=== PATIENT | female | born 1990 | race Caucasian/White ===

== ENCOUNTER → 2016-08-04 | Outpatient (CLI) | payer OTHER ==
[2016-08-04 12:01] LABS: Follicle Stimulating Hormone 5.2 mIU/mL; Prolactin 15.2 ng/mL (3.0-18.6)
[2016-08-04 15:19] LABS: DHEA Sulfate 274.1 ug/dL (26.0-430.0)
== END | disposition home or self-care (01) ==
LOC: LABWHC1 08:24
PROVIDERS: ATTEND Obstetrics & Gynecology
DX: E28.2 Polycystic ovarian syndrome (principal)
CPT/HCPCS: 36415; 80061; 82627; 82947; 83001; 83002; 83525; 84146; 84402; 84443

== ENCOUNTER 2016-09-29 22:54 | Emergency (ER) | payer OTHER ==
--- NOTE | 2016-09-30 00:25 | ED ---
General Adult HPI - General Chief complaint: Headache Stated complaint: Migrane Time Seen by Provider: 09/29/16 23:30 Source: patient, RN notes reviewed Mode of arrival: ambulatory Limitations: no limitations - History of Present Illness Initial comments: This is a 26-year-old female presents to the emergency department complaining of a two-week history of a headache. Patient states headache is on the right side and she just figured it was a migraine headache. Patient states she's never been worked up for migraine headache. Patient comes in today because she started getting some pain in the base of her skull on the right and sometimes she states radiates up into her head. Patient states it hurts to palpate the area. Patient states was no injury or trauma to that area that she knows of. Patient denies any numbness or weakness. Patient denies visual disturbance currently but she states yesterday she thought her left eye was a little more blurry than normal. - Related Data Previous Rx's Medication Instructions Recorded Cyclobenzaprine [Flexeril] 10 mg PO TID #20 tab 09/30/16 Allergies Allergy/AdvReac Type Severity Reaction Status Date / Time Penicillins Allergy Unknown Verified 09/29/16 23:15 Review of Systems ROS Statement: Those systems with pertinent positive or pertinent negative responses have been documented in the HPI. ROS Other: All systems not noted in ROS Statement are negative. Past Medical History Past Medical History: Asthma History of Any Multi-Drug Resistant Organisms: None Reported Past Surgical History: No Surgical Hx Reported Past Psychological History: Bipolar, Depression Smoking Status: Never smoker Past Alcohol Use History: None Reported Past Drug Use History: None Reported General Exam - General Exam Comments Initial Comments: GENERAL: Patient is well-developed and well-nourished. Patient is nontoxic and well- hydrated and is in mild distress. ENT: Neck is soft and supple. No significant lymphadenopathy is noted. Oropharynx is clear. Moist mucous membranes. Patient has pain at the base of skull on the right when she looks and flexes to the left. It is also tender at the top of the trapezius muscle on palpation. EYES: The sclera were anicteric and conjunctiva were pink and moist. Extraocular movements were intact and pupils were equal round and reactive to light. Eyelids were unremarkable. PULMONARY: Unlabored respirations. Good breath sounds bilaterally. No audible rales rhonchi or wheezing was noted. CARDIOVASCULAR: There is a regular rate and rhythm without any murmurs gallops or rubs. ABDOMEN: Soft and nontender with normal bowel sounds. No palpable organomegaly was noted. There is no palpable pulsatile mass. SKIN: Skin is clear with no lesions or rashes and otherwise unremarkable. NEUROLOGIC: Patient is alert and oriented x3. Cranial nerves II through XII are grossly intact. Motor and sensory are also intact. Normal speech, volume and content. Symmetrical smile. MUSCULOSKELETAL: Normal extremities with adequate strength and full range of motion. LYMPHATICS: No significant lymphadenopathy is noted PSYCHIATRIC: Normal psychiatric evaluation. Limitations: no limitations Course Vital Signs 09/29/16 23:12 Temperature 99.1 F Pulse Rate 108 H Respiratory 20 Rate Blood Pressure 118/58 O2 Sat by Pulse 97 Oximetry Medical Decision Making - Medical Decision Making Patient's CT of the brain was negative. I gave the patient Toradol and Norflex for the neck discomfort. Patient states it took away her headache and did loosen up her neck a little. Patient has no other complaints at this time. I told the patient she had any focal neurologic deficits she is to return immediately. Disposition Clinical Impression: Headache, Trapezius muscle strain Disposition: HOME SELF-CARE Condition: Good Instructions: Acute Headache (ED), Muscle Strain (ED) Additional Instructions: Patient should take Motrin 600 mg every 6 hours. Patient is to return for any numbness weakness or change in the neurologic function. Prescriptions: Cyclobenzaprine [Flexeril] 10 mg PO TID #20 tab Referrals: Kashif Verde MD [Primary Care Provider] - 1-2 days Time of Disposition: 01:54
--- NOTE | 2016-09-30 01:18 | CT ---
EXAM: CT Head Without Intravenous Contrast CLINICAL HISTORY: Reason: Pain TECHNIQUE: Axial computed tomography images of the head/brain without intravenous contrast. CTDI is 57.40 mGy and DLP is 1098.80 mGy-cm This CT exam was performed using one or more of the following dose reduction techniques: automated exposure control, adjustment of the mA and/or kV according to patient size, and/or use of iterative reconstruction technique. COMPARISON: Head CT 08/11/15 FINDINGS: Brain: Unremarkable. No hemorrhage. No significant white matter disease. No edema. Ventricles: Unremarkable. No ventriculomegaly. Bones/joints: Unremarkable. No acute fracture. Soft tissues: Unremarkable. Sinuses: Unremarkable as visualized. No acute sinusitis. Mastoid air cells: Unremarkable as visualized. No mastoid effusion. IMPRESSION: Normal head/brain CT.
[2016-09-30] MEDS ORDERED: KETOROLAC 60 MG/2 ML VIAL IM STA (01:20)
[2016-09-30] MEDS ORDERED: ORPHENADRINE 30 MG/ML 2 ML VIAL IM STA (01:21)
[2016-09-30 02:03] VITALS: BP 138/75; PULSE 80; RESP 18; TEMP 98
== END 2016-09-30 02:03 | disposition home or self-care (01) ==
LOC: EC 22:54
DX: S46.812A Strain of other muscles, fascia and tendons at shoulder and upper arm level, left arm, initial encounter (principal); R51 Headache; X58.XXXA Exposure to other specified factors, initial encounter; Z88.0 Allergy status to penicillin
CPT/HCPCS: 70450; 99284; 96372 ×2; J2360; J1885

== ENCOUNTER 2018-01-10 03:18 | Emergency (ER) | payer SELFPAY ==
[2018-01-10] MEDS ORDERED: ORPHENADRINE 30 MG/ML 2 ML VIAL IM STA (03:44)
[2018-01-10] MEDS ORDERED: KETOROLAC 60 MG/2 ML VIAL IM STA (03:44)
[2018-01-10] MEDS ORDERED: predniSONE 20 MG TAB PO STA (03:44)
--- NOTE | 2018-01-10 03:49 | ED ---
Back Pain HPI - General Chief Complaint: Back Pain/Injury Stated Complaint: Back Pain Time Seen by Provider: 01/10/18 03:38 Source: patient Limitations: no limitations - History of Present Illness Initial Comments: This patient is 27-year-old woman who presents to be evaluated for right lumbar back pain that radiates toward her leg. The patient states she may have pulled a muscle earlier in the day, and then tonight she was reaching for her brush and had the onset of pain. She states that now the pain radiates from the right buttock toward the right thigh. She states pain is constant, severe, burning aching type of pain. She has not had any pain in the abdomen. She is not having any change in bladder or bowel function. No weakness or numbness of the extremities. MD Complaint: back pain -: hour(s) Similar Symptoms Previously: No Place: home Radiation: right leg Severity: severe Quality: burning, aching Consistency: constant Improves With: immobilization Worsens With: sitting upright Context: other Associated Symptoms: denies other symptoms - Related Data Previous Rx's Medication Instructions Recorded Cyclobenzaprine [Flexeril] 10 mg PO TID #20 tab 09/30/16 Ibuprofen [Motrin] 600 mg PO Q8HR PRN #20 tab 01/10/18 Methocarbamol [Robaxin-750] 750 mg PO TID PRN #30 tablet 01/10/18 predniSONE 60 mg PO DAILY #30 tab 01/10/18 Allergies Allergy/AdvReac Type Severity Reaction Status Date / Time Penicillins Allergy Unknown Verified 01/10/18 03:24 Review of Systems ROS Statement: Those systems with pertinent positive or pertinent negative responses have been documented in the HPI. ROS Other: All systems not noted in ROS Statement are negative. Constitutional: Denies: fever, weakness Cardiovascular: Denies: chest pain Gastrointestinal: Denies: abdominal pain Genitourinary: Denies: urgency, dysuria, frequency, hematuria Musculoskeletal: Reports: as per HPI, back pain Skin: Denies: rash Neurological: Denies: headache, weakness, numbness, paresthesias Past Medical History Past Medical History: Asthma History of Any Multi-Drug Resistant Organisms: None Reported Past Surgical History: No Surgical Hx Reported Past Psychological History: Bipolar, Depression Smoking Status: Never smoker Past Alcohol Use History: None Reported Past Drug Use History: None Reported General Exam Limitations: no limitations General appearance: alert, in no apparent distress, obese Cardiovascular Exam: Present: other (Pedal pulses are symmetric and normal in strength) GI/Abdominal exam: Absent: distended, tenderness, guarding, rebound, pulsatile mass, hernia Extremities exam: Present: normal inspection, normal capillary refill. Absent: pedal edema, calf tenderness Back exam: Present: normal inspection, tenderness. Absent: CVA tenderness (R), CVA tenderness (L), vertebral tenderness Neurological exam: Present: alert, reflexes normal. Absent: motor sensory deficit Skin exam: Present: warm, dry, intact, normal color. Absent: rash Course Vital Signs 01/10/18 03:22 Temperature 98.1 F Pulse Rate 109 H Respiratory 28 H Rate Blood Pressure 157/117 O2 Sat by Pulse 97 Oximetry Disposition Clinical Impression: Lumbar strain Disposition: HOME SELF-CARE Condition: Good Instructions: Acute Low Back Pain (ED) Prescriptions: Ibuprofen [Motrin] 600 mg PO Q8HR PRN #20 tab PRN Reason: Pain Methocarbamol [Robaxin-750] 750 mg PO TID PRN #30 tablet PRN Reason: pain predniSONE 60 mg PO DAILY #30 tab Is patient prescribed a controlled substance at d/c from ED?: No Referrals: Kashif Verde MD [Primary Care Provider] - 1-2 days
[2018-01-10 06:15] VITALS: BP 120/57; PULSE 78; RESP 18; TEMP 98
[2018-01-10] MEDS ORDERED: HYDROmorphone 1 MG/ML 1 ML SYRINGE IM STA (06:22)
== END 2018-01-10 06:45 | disposition home or self-care (01) ==
LOC: EC 03:18
DX: S39.012A Strain of muscle, fascia and tendon of lower back, initial encounter (principal); Z88.0 Allergy status to penicillin; X58.XXXA Exposure to other specified factors, initial encounter; Y93.89 Activity, other specified
CPT/HCPCS: 99283; 96372 ×3; J2360; J1885; J1170; J7512

== ENCOUNTER 2019-03-12 07:38 | Emergency (ER) | payer OTHER ==
[2019-03-12 07:46] VITALS: TEMP 98.2
[2019-03-12] MEDS ORDERED: KETOROLAC 60 MG/2 ML VIAL IVP STA (08:00)
[2019-03-12] MEDS ORDERED: DIAZEPAM 5 MG/ML 2 ML INJ IVP STA (08:00)
--- NOTE | 2019-03-12 08:06 | ED ---
General Adult HPI - General Chief complaint: Abdominal Pain Stated complaint: back pain Time Seen by Provider: 03/12/19 07:40 Source: patient, RN notes reviewed Mode of arrival: ambulatory Limitations: no limitations - History of Present Illness Initial comments: This is a 28-year-old female presents emergency Department complaining of left mid back pain. Patient states been hurting a little bit over 2 weeks but this morning and hurt so bad she was unable to dress herself or comb her hair. Patient states movement or deep breathing makes it considerably worse per patient denies any recent fever chills or cough. Patient denies picking up anything heavy or injuring it knowingly. Patient denies any radiation of pain. Patient denies any dysuria hematuria urinary frequency. Patient denies any history of kidney stones. Patient states she has had sciatica in the past but this is much higher much worse pain. - Related Data Home Medications Medication Instructions Recorded Confirmed Etonogestrel/Ethinyl Estradiol 1 ring VG Q21D 03/12/19 03/12/19 [Nuvaring Vaginal Ring] Loratadine [Claritin] 10 mg PO DAILY PRN 03/12/19 03/12/19 metFORMIN HCL [Glucophage] 500 mg PO BID 03/12/19 03/12/19 Previous Rx's Medication Instructions Recorded Methocarbamol [Robaxin-750] 750 mg PO TID PRN #30 tablet 01/10/18 Cyclobenzaprine [Flexeril] 10 mg PO TID #20 tab 03/12/19 Ketorolac [Toradol] 10 mg PO Q6HR #15 tab 03/12/19 Allergies Allergy/AdvReac Type Severity Reaction Status Date / Time Penicillins Allergy Rash/Hives Verified 03/12/19 08:02 Review of Systems ROS Statement: Those systems with pertinent positive or pertinent negative responses have been documented in the HPI. ROS Other: All systems not noted in ROS Statement are negative. Past Medical History Past Medical History: Asthma History of Any Multi-Drug Resistant Organisms: None Reported Past Surgical History: No Surgical Hx Reported Past Psychological History: Bipolar, Depression Smoking Status: Never smoker Past Alcohol Use History: None Reported Past Drug Use History: None Reported General Exam - General Exam Comments Initial Comments: GENERAL: Patient is well-developed and well-nourished. Patient is nontoxic and well- hydrated and is in moderate distress. ENT: Neck is soft and supple. No significant lymphadenopathy is noted. Oropharynx is clear. Moist mucous membranes. Neck has full range of motion without eliciting any pain. EYES: The sclera were anicteric and conjunctiva were pink and moist. Extraocular movements were intact and pupils were equal round and reactive to light. Eyelids were unremarkable. PULMONARY: Unlabored respirations. Good breath sounds bilaterally. No audible rales rhonchi or wheezing was noted. CARDIOVASCULAR: There is a regular rate and rhythm without any murmurs gallops or rubs. ABDOMEN: Soft and nontender with normal bowel sounds. SKIN: Skin is clear with no lesions or rashes and otherwise unremarkable. NEUROLOGIC: Patient is alert and oriented x3. Cranial nerves II through XII are grossly intact. Motor and sensory are also intact. Normal speech, volume and content. Symmetrical smile. MUSCULOSKELETAL: Normal extremities with adequate strength and full range of motion. Patient's pain is reproducible with palpation on the left mid thoracic back LYMPHATICS: No significant lymphadenopathy is noted PSYCHIATRIC: Normal psychiatric evaluation. Limitations: no limitations Course Vital Signs 03/12/19 03/12/19 03/12/19 07:42 09:05 09:32 Temperature 98.2 F Pulse Rate 68 81 98 Respiratory 81 H 16 16 Rate Blood Pressure 104/60 122/63 126/61 O2 Sat by Pulse 99 98 98 Oximetry Medical Decision Making - Medical Decision Making Chest x-ray showed no acute abnormality. I gave the patient Valium and Toradol and it didn't relieve her pain considerably so I gave her half of Dilaudid and it did help with the pain but also made her very nauseated. Patient does not want any other medicines at this time she states that she'll be fine going home with an anti-inflammatory and muscle relaxant. - Lab Data Lab Results 03/12/19 03/12/19 Range/Units 08:19 08:19 Urine Color Yellow Urine Appearance Clear (Clear) Urine pH 5.5 (5.0-8.0) Ur Specific [place] 1.022 (1.001-1.035) Urine Protein Negative (Negative) Urine Glucose (UA) Negative (Negative) Urine Ketones Negative (Negative) Urine Blood Negative (Negative) Urine Nitrite Negative (Negative) Urine Bilirubin Negative (Negative) Urine Urobilinogen <2.0 (<2.0) mg/dL Ur Leukocyte Esterase Negative (Negative) Urine HCG, Qual Not Detected (Not Detectd) Disposition Clinical Impression: Acute thoracic myofascial strain Disposition: HOME SELF-CARE Condition: Good Prescriptions: Cyclobenzaprine [Flexeril] 10 mg PO TID #20 tab Ketorolac [Toradol] 10 mg PO Q6HR #15 tab Is patient prescribed a controlled substance at d/c from ED?: No Referrals: Kashif Verde MD [Primary Care Provider] - 1-2 days Time of Disposition: 10:08
--- NOTE | 2019-03-12 08:45 | XR ---
EXAMINATION TYPE: XR chest 2V DATE OF EXAM ORDERED: 03/12/2019 HISTORY: Difficulty breathing . REFERENCE: Previous study dated 03/08/2012. FINDINGS: The lungs are clear. Pleural spaces are clear. Heart size is normal. IMPRESSION: NORMAL CHEST.
[2019-03-12] MEDS ORDERED: HYDROmorphone 1 MG/ML 1 ML SYRINGE IVP STA (08:58)
[2019-03-12] MEDS ORDERED: HYDROmorphone 0.5 MG/0.5 ML SYRINGE IVP STA (09:00)
[2019-03-12 09:06] VITALS: RESP 16
[2019-03-12] MEDS ORDERED: ONDANSETRON 4 MG/2 ML VIAL IVP STA (09:25)
[2019-03-12 09:43] LABS: Appearance,Urine Clear (Clear); Bilirubin,Urine Negative (Negative); Blood,Urine Negative (Negative); Color,Urine Yellow; Glucose,Urine (UA) Negative (Negative); Ketones,Urine Negative (Negative); Leukocyte Esterase,Urine Negative (Negative); Nitrite,Urine Negative (Negative); PH, Urine 5.5 (5.0-8.0); Protein,Urine Negative (Negative); Specific Gravity,Urine 1.022 (1.001-1.035); Urobilinogen,Urine <2.0 mg/dL (<2.0)
[2019-03-12 10:24] VITALS: BP 116/67; PULSE 75
== END 2019-03-12 10:12 | disposition home or self-care (01) ==
LOC: EC 07:38
DX: S29.012A Strain of muscle and tendon of back wall of thorax, initial encounter (principal); R11.0 Nausea; Z32.02 Encounter for pregnancy test, result negative; Z79.84 Long term (current) use of oral hypoglycemic drugs; Z79.3 Long term (current) use of hormonal contraceptives; Z88.0 Allergy status to penicillin; X58.XXXA Exposure to other specified factors, initial encounter
CPT/HCPCS: 81003; 81025; 71046; 99284; 96374; 96375 ×3; J3360; J2405; J1885; J1170

== ENCOUNTER 2021-07-13 20:43 | Emergency (ER) | payer OTHER ==
[2021-07-13 21:02] VITALS: BP 120/76; TEMP 98.4
--- NOTE | 2021-07-13 21:18 | ED ---
Back Pain HPI - General Chief Complaint: Back Pain/Injury Stated Complaint: Back/R hip pain Time Seen by Provider: 07/13/21 21:18 Source: patient Limitations: no limitations - History of Present Illness Initial Comments: Keke is a 30yo F with PMH of sciatica in the past who presents to the ER today via private vehicle with complaint of exacerbation of sciatica. Patient reports that over to pull clothes out of a drawer and felt her lower back, she doesn't have shooting pain from her right lower back down her right leg. This is identical to previous episodes of sciatica. She has no numbness or weakness in her leg. She is still ambulatory. Patient states in the past she has seen a chiropractor for her low back pain and sciatica, she is also been educated on sciatica stretches. Patient states she has not been compliant with her stretches due to working from home and sitting all day, she also states that due to COVID-19 she hasn't been able see a chiropractor on a regular basis. - Related Data Home Medications Medication Instructions Recorded Confirmed Etonogestrel/Ethinyl Estradiol 1 ring VG Q21D 03/12/19 03/12/19 [Nuvaring Vaginal Ring] Loratadine [Claritin] 10 mg PO DAILY PRN 03/12/19 03/12/19 metFORMIN HCL [Glucophage] 500 mg PO BID 03/12/19 03/12/19 Previous Rx's Medication Instructions Recorded Methocarbamol [Robaxin-750] 750 mg PO TID PRN #30 tablet 01/10/18 Cyclobenzaprine [Flexeril] 10 mg PO TID #20 tab 03/12/19 Ketorolac [Toradol] 10 mg PO Q6HR #15 tab 03/12/19 Ketorolac [Toradol] 10 mg PO Q6HR #30 tab 07/13/21 Methocarbamol [Robaxin-750] 750 mg PO TID #30 tablet 07/13/21 predniSONE [Deltasone] 40 mg PO DAILY 5 Days #10 tab 07/13/21 Allergies Allergy/AdvReac Type Severity Reaction Status Date / Time Penicillins Allergy Rash/Hives Verified 07/13/21 21:02 Review of Systems ROS Statement: Those systems with pertinent positive or pertinent negative responses have been documented in the HPI. ROS Other: All systems not noted in ROS Statement are negative. Past Medical History Past Medical History: Asthma History of Any Multi-Drug Resistant Organisms: None Reported Past Surgical History: No Surgical Hx Reported Past Psychological History: Bipolar, Depression Smoking Status: Never smoker Past Alcohol Use History: None Reported Past Drug Use History: None Reported General Exam - General Exam Comments Initial Comments: Physical Exam GENERAL: Patient is well-developed and well-nourished. Patient is nontoxic and well-hydrated and is in no distress. BMI 54 HENT: Normocephalic, Atraumatic. EYES: PERRL, EOMI PULMONARY: Unlabored respirations. CARDIOVASCULAR: Warm and well perfused extremities ABDOMEN: Non-distended SKIN: No rashes or bruising : Deferred NEUROLOGIC: Alert and oriented Normal speech Normal sensation bilateral lower extremities Antalgic gait MUSCULOSKELETAL: Moving all extremities with no apparent injury PSYCHIATRIC: No SI/HI Limitations: no limitations Course Vital Signs 07/13/21 07/13/21 20:58 23:42 Temperature 98.4 F Pulse Rate 101 H 87 Respiratory 20 16 Rate Blood Pressure 120/76 O2 Sat by Pulse 97 98 Oximetry Medical Decision Making - Medical Decision Making Was seen and evaluated, history is obtained from the patient Obese female with history of sciatica with recurrent episode of sciatica Leslie no red flag symptoms Patient is treated symptomatically with Toradol, Norflex and steroids, And reevaluation patient reports her pain has improved, she does feel tolerable amount she will be able sleep at home Patient was prescribed Toradol Robaxin which she has had in the past and stero ids for home, encouraged to resume her normal stretches for sciatica and follow with her chiropractor as this is been successful for her in the past. Disposition Clinical Impression: Sciatica Disposition: HOME SELF-CARE Condition: Stable Instructions (If sedation given, give patient instructions): Sciatica (ED) Prescriptions: predniSONE [Deltasone] 40 mg PO DAILY 5 Days #10 tab Methocarbamol [Robaxin-750] 750 mg PO TID #30 tablet Ketorolac [Toradol] 10 mg PO Q6HR #30 tab Is patient prescribed a controlled substance at d/c from ED?: No Referrals: Kashif Verde MD [Primary Care Provider] - 1-2 days
[2021-07-13] MEDS ORDERED: KETOROLAC 15 MG/ML 1 ML VIAL IM STA (21:31)
[2021-07-13] MEDS ORDERED: methylPREDNISolone SOD SUCCI 125 MG/2 ML VIAL IM ONE (21:31)
[2021-07-13] MEDS ORDERED: ORPHENADRINE 30 MG/ML 2 ML VIAL IM STA (21:31)
[2021-07-13 23:43] VITALS: PULSE 87; RESP 16
== END 2021-07-13 23:43 | disposition home or self-care (01) ==
LOC: EC 20:43
DX: M54.31 Sciatica, right side (principal); J45.909 Unspecified asthma, uncomplicated; F31.9 Bipolar disorder, unspecified; Z79.84 Long term (current) use of oral hypoglycemic drugs; Z79.899 Other long term (current) drug therapy; Z88.0 Allergy status to penicillin
CPT/HCPCS: 99283; 96372 ×3; J2360; J2930; J1885

== ENCOUNTER 2024-08-22 09:08 | Day surgery (SDC) | payer OTHER ==
[2024-08-18 11:15] VITALS: BMI 56.8
[2024-08-22] MEDS: IV FLUID CONTINUATION 1,000 ML IV ONE (09:31)
[2024-08-22 09:45] VITALS: TEMP 97.6
[2024-08-22] MEDS: LACTATED RINGERS 1,000 ML IV SCH (09:47)
[2024-08-22] MEDS ORDERED: LIDOCAINE 2% (PF) 20 MG/ML 5 ML VIAL ONE (10:00)
[2024-08-22] MEDS ORDERED: KETAMINE HCL IN 0.9 % NACL 50 MG/5 ML SYRINGE ONE (10:00)
[2024-08-22] MEDS ORDERED: MIDAZOLAM 2 MG/2 ML VIAL ONE (10:00)
[2024-08-22] MEDS ORDERED: GLYCOPYRROLATE 0.2 MG/ML 2 ML VIAL ONE (10:00)
[2024-08-22] MEDS ORDERED: PROPOFOL 10 MG/ML 20 ML VIAL IV ONE (10:00)
--- NOTE | 2024-08-22 10:20 | P.PCN ---
Date of Procedure: 08/22/24 Procedure(s) Performed: PREOPERATIVE DIAGNOSIS: Rectal bleeding POSTOPERATIVE DIAGNOSIS: Hypertrophied anal papilla with an anterior internal hemorrhoid PROCEDURE: Colonoscopy, anoscopy with hemorrhoidal banding ANESTHESIA: MAC SURGEON: Justice Valiente M.D. SPECIMENS: None ENDOSCOPIC PROCEDURE: The patient was placed on the endoscopy table in the left decubitus position. The Olympus colonoscope was inserted into the anus and passed under direct visualization to the base of the cecum. The appendiceal orifice was visualized. From that point the scope was slowly withdrawn inspecting all surfaces carefully. There were no neoplastic inflammatory or polypoid lesions throughout the cecum, ascending, transverse, descending, sigmoid and rectum. There was no visible diverticulosis noted. Retroflexion at the anus revealed a hypertrophied anal papilla that was associated with a prominent internal hemorrhoid in the anterior location. This could have been the source of intermittent bleeding. Rather than use a snare to remove the hypertrophied papilla given the hemorrhoid seen there the anoscope was utilized and a single hemorrhoidal band was placed over the papilla/internal hemorrhoid. Digital rectal examination was otherwise normal. No evidence of anal fissure was seen. No external hemorrhoids were noted. The patient was taken to the recovery room in stable condition per anesthesia guidelines. RECOMMENDATIONS: Resume diet. Monitor for recurrent bleeding. Repeat colonoscopy age 46.
[2024-08-22 11:07] VITALS: BP 117/67; PULSE 78; RESP 18
== END 2024-08-22 11:08 | disposition home or self-care (01) ==
LOC: ORWHC2ENDO 09:08
PROVIDERS: ATTEND Surgery
DX: K62.89 Other specified diseases of anus and rectum (principal); K64.8 Other hemorrhoids; J45.909 Unspecified asthma, uncomplicated; F41.9 Anxiety disorder, unspecified; F31.9 Bipolar disorder, unspecified; E66.01 Morbid (severe) obesity due to excess calories; F12.90 Cannabis use, unspecified, uncomplicated; L63.9 Alopecia areata, unspecified; Z87.19 Personal history of other diseases of the digestive system; Z79.899 Other long term (current) drug therapy; Z79.84 Long term (current) use of oral hypoglycemic drugs; Z80.0 Family history of malignant neoplasm of digestive organs; Z88.0 Allergy status to penicillin; Z68.43 Body mass index [BMI] 50.0-59.9, adult
CPT/HCPCS: 81025; 45398; J2250; J2704; J2003; J1596

== ENCOUNTER 2024-12-20 07:50 | Emergency (ER) | payer OTHER ==
[2024-12-20 07:56] VITALS: TEMP 97.9
[2024-12-20] MEDS: KETOROLAC 15 MG/ML 1 ML VIAL IM STA (08:10)
--- NOTE | 2024-12-20 08:13 | ED ---
General Adult HPI - General Chief complaint: Back Pain/Injury Stated complaint: Low back pain/NV Time Seen by Provider: 12/20/24 07:51 Source: patient, RN notes reviewed, old records reviewed Mode of arrival: ambulatory Limitations: no limitations - History of Present Illness Initial comments: 34-year-old female with chronic low back pain presents for evaluation of back pain over the past 1 week. Patient denies injury. She states this is predominantly on the right low back which is typical for her. Denies bowel or bladder dysfunction. Denies dysuria or hematuria. Denies current . Patient has had no fever. - Related Data Home Medications Medication Instructions Recorded Confirmed Etonogestrel/Ethinyl Estradiol 1 ring VG Q21D 03/12/19 08/22/24 [Nuvaring Vaginal Ring] metFORMIN HCL [Glucophage] 500 mg PO BID 03/12/19 08/22/24 ALPRAZolam [Xanax] 0.25 mg PO BID PRN 08/18/24 08/22/24 Betamethasone Valerate [Luxiq 0.1%] 1 applic TOPICAL DAILY 08/18/24 08/22/24 Clobetasol Propionate/Emoll 1 applic TOPICAL DAILY 08/18/24 08/22/24 [Clobetasol Emulsion 0.05% Foam] Fexofenadine HCl [Robyn Allergy] 180 mg PO DAILY PRN 08/18/24 08/22/24 Phentermine HCl [Adipex-P] 37.5 mg PO DAILY 08/18/24 08/22/24 Sertraline [Zoloft] 75 mg PO DAILY 08/18/24 08/22/24 lamoTRIgine [LaMICtal] 50 mg PO BID 08/18/24 08/22/24 Previous Rx's Medication Instructions Recorded predniSONE 50 mg PO DAILY #5 tab 12/20/24 Allergies Allergy/AdvReac Type Severity Reaction Status Date / Time Penicillins Allergy Rash/Hives Verified 12/20/24 07:56 Review of Systems ROS Statement: Those systems with pertinent positive or pertinent negative responses have been documented in the HPI. ROS Other: All systems not noted in ROS Statement are negative. Past Medical History Past Medical History: Asthma, Skin Disorder Additional Past Medical History / Comment(s): alopecia, excema History of Any Multi-Drug Resistant Organisms: None Reported Past Surgical History: No Surgical Hx Reported Past Anesthesia/Blood Transfusion Reactions: No Reported Reaction Additional Past Anesthesia/Blood Transfusion Reaction / Comment(s): no blood transfusion Past Psychological History: Anxiety, Bipolar, Depression Smoking Status: Never smoker Past Alcohol Use History: None Reported Past Drug Use History: Marijuana General Exam Limitations: no limitations General appearance: alert, in no apparent distress Head exam: Present: atraumatic, normocephalic Eye exam: Present: normal appearance, PERRL ENT exam: Present: normal exam Neck exam: Present: normal inspection. Absent: tenderness, meningismus Respiratory exam: Present: normal lung sounds bilaterally. Absent: respiratory distress, wheezes Cardiovascular Exam: Present: regular rate, normal rhythm GI/Abdominal exam: Present: soft. Absent: distended, tenderness, guarding Extremities exam: Present: normal inspection Back exam: Present: paraspinal tenderness (Right lumbar) Neurological exam: Present: alert, oriented X3, CN II-XII intact. Absent: motor sensory deficit Psychiatric exam: Present: normal affect, normal mood Skin exam: Present: warm, dry, intact Course Vital Signs 12/20/24 07:54 Temperature 97.9 F Pulse Rate 98 Respiratory 20 Rate Blood Pressure 129/79 O2 Sat by Pulse 96 Oximetry Medical Decision Making - Medical Decision Making Was pt. sent in by a medical professional or institution (, PA, SORTER/ASSAY TECH, urgent care, hospital, or senior living...) When possible be specific @ -No Did you speak to anyone other than the patient for history (EMS, parent, family, police, friend...)? What history was obtained from this source @ -No Did you review nursing and triage notes (agree or disagree)? Why? @ -I reviewed and agree with nursing and triage notes Were old charts reviewed (outside hosp., previous admission, EMS record, old EKG, old radiological studies, urgent care reports/EKG's, senior living records)? Report findings @ -No old charts were reviewed Differential Back Pain: Strain, zoster, cauda equina syndrome, epidural abscess, vertebral osteomyelitis, discitis, fracture, subluxation, disc herniation, DJD, spinal stenosis, dissection, AAA, pancreatitis, peptic ulcer disease, pyelonephritis, kidney stone, this is not meant to be an all-inclusive list. EKG interpreted by me (3pts min.). @ -As above X-rays interpreted by me (1pt min.). @ -None done CT interpreted by me (1pt min.). @ -None done U/S interpreted by me (1pt. min.). @ -None done What testing was considered but not performed or refused? (CT, X-rays, U/S, labs)? Why? @ -None What meds were considered but not given or refused? Why? @ -None Did you discuss the management of the patient with other professionals (professionals i.e. DrBarbara, PA, SORTER/ASSAY TECH, lab, RT, psych nurse, adoption social worker, webmaster, teacher, sports development officer, case management associate)? Give summary @ -No Was smoking cessation discussed for >3mins.? @ -No Was critical care preformed (if so, how long)? @ -No Were there social determinants of health that impacted care today? How? (Homelessness, low income, unemployed, alcoholism, drug addiction, transportation, low edu. Level, literacy, decrease access to med. care, usp, rehab)? @ -No Was there de-escalation of care discussed even if they declined (Discuss DNR or withdrawal of care, Hospice)? DNR status @ -No What co-morbidities impacted this encounter? (DM, HTN, Smoking, COPD, CAD, Cancer, CVA, ARF, Chemo, Hep., AIDS, mental health diagnosis, sleep apnea, morbid obesity)? @ -[Acute on chronic back pain Was patient admitted / discharged? Hospital course, mention meds given and route, prescriptions, significant lab abnormalities, going to OR and other pertinent info. @ -34-year-old female with back pain, typical of previous back pain, no alarming features. Patient given Valium, Toradol and [facility] in the emergency department. Prescribed a course of steroids and instructed to follow-up with her primary care provider. Undiagnosed new problem with uncertain prognosis? @ -[No Drug Therapy requiring intensive monitoring for toxicity (Heparin, Nitro, Insulin, Cardizem)? @ -No Were any procedures done? @ -No Diagnosis/symptom? @Acute on chronic back pain Acute, or Chronic, or Acute on Chronic? @Acute on chronic Uncomplicated (without systemic symptoms) or Complicated (systemic symptoms)? @ -Default Side effects of treatment? @ -No Exacerbation, Progression, or Severe Exacerbation? @ -No Poses a threat to life or bodily function? How? (Chest pain, [place], PA, pneumonia, PE, COPD, DKA, ARF, appy, cholecystitis, CVA, Diverticulitis, Homicidal, Suicidal, threat to staff... and all critical care pts) @ -No Disposition Clinical Impression: Lumbar strain Disposition: HOME SELF-CARE Condition: Fair Instructions (If sedation given, give patient instructions): Acute Low Back Pain (ED) Prescriptions: predniSONE 50 mg PO DAILY #5 tab Is patient prescribed a controlled substance at d/c from ED?: No Referrals: Kashif Verde MD [Primary Care Provider] - 1-2 days Time of Disposition: 09:07
[2024-12-20 09:26] VITALS: BP 116/53; PULSE 90; RESP 18
[2024-12-20] MEDS: HYDROcodone/APAP 5-325MG 1 EACH TAB PO STA (09:26)
[2024-12-20 09:36] LABS: Bilirubin,Urine Negative (Negative); Blood,Urine Negative (Negative); Color,Urine Yellow; Glucose,Urine (UA) Negative (Negative); Ketones,Urine Negative (Negative); Leukocyte Esterase,Urine Negative (Negative); Nitrite,Urine Negative (Negative); PH, Urine 5.5 (5.0-8.0); Protein,Urine Trace (Negative); Specific Gravity,Urine 1.028 (1.001-1.035); Urobilinogen,Urine <2.0 mg/dL (<2.0)
== END 2024-12-20 09:50 | disposition home or self-care (01) ==
LOC: EC 07:50
DX: S39.012A Strain of muscle, fascia and tendon of lower back, initial encounter (principal); G89.29 Other chronic pain; Z88.0 Allergy status to penicillin; X58.XXXA Exposure to other specified factors, initial encounter
CPT/HCPCS: 81003; 81025; 99283; 96372; J3360; J1885

== ENCOUNTER → 2024-12-28 | Outpatient (CLI) | payer OTHER ==
--- NOTE | 2024-12-28 19:12 | XR ---
EXAMINATION TYPE: XR lumbosacral spine 5 views DATE OF EXAM: 12/28/2024 1:33 PM COMPARISON: None CLINICAL INDICATION: Female, 34 years old with history of M54.50 LOW BACK PAIN; PHH, pain FINDINGS: 5 lumbar type vertebral bodies. No pars interarticularis defect. Smox-jm-[id number] facet arthropathy t hroughout especially lower lumbar spine. Vertebral heights are preserved and alignment is maintained. There is mild degenerative disc disease throughout both more prominent endplate spondylosis. IMPRESSION: 1. Mild multilevel degenerative disc disease and mild to moderate facet arthropathy. 2. No vertebral compression collapse or malalignment. [facility], , 12/28/2024 7:10 PM
== END | disposition home or self-care (01) ==
LOC: RADXRMAIN 13:11
PROVIDERS: ATTEND Chiropractor
DX: M51.360 Other intervertebral disc degeneration, lumbar region with discogenic back pain only (principal); M47.816 Spondylosis without myelopathy or radiculopathy, lumbar region
CPT/HCPCS: 72110